=== PATIENT | female | born 1985 | race Caucasian/White ===

== ENCOUNTER 2022-02-17 04:19 | Day surgery (SDC) | payer BC, OTHER ==
[2022-02-14 12:29] VITALS: BMI 24.0
[2022-02-17] MEDS ORDERED: MIDAZOLAM HCL 2 MG/2 ML SINGLE DOSE VIAL ONE (14:09)
[2022-02-17] MEDS ORDERED: PROPOFOL 40 ML ONE (14:10)
[2022-02-17] MEDS ORDERED: SUCCINYLCHOLINE CHLORIDE 200 MG/10 ML SYRINGE ONE (14:11)
[2022-02-17] MEDS ORDERED: ROCURONIUM BROMIDE 50 MG/5 ML SYRINGE ONE (14:11)
[2022-02-17] MEDS ORDERED: ONDANSETRON 4 MG/2 ML VIAL ONE (14:12)
[2022-02-17] MEDS ORDERED: KETOROLAC TROMETHAMINE 30 MG/1 ML VIAL ONE (14:12)
[2022-02-17] MEDS ORDERED: LIDOCAINE HCL/PF 2% SDV 5ML VIAL ONE (14:12)
[2022-02-17] MEDS ORDERED: DEXAMETHASONE SOD PHOSPHATE 4 MG/1 ML VIAL ONE (14:12)
[2022-02-17] MEDS ORDERED: CEFAZOLIN SODIUM 2 GM in DEXTROSE 5%-WATER 100 ML IVPB ONE (14:22)
[2022-02-17] MEDS ORDERED: PHENYLEPHRINE HCL 10 MG/1 ML SINGLE DOSE VIAL ONE (14:45)
[2022-02-17] MEDS ORDERED: ceFAZolin SODIUM 1 GM VIAL IVPB ONE (14:50)
[2022-02-17] MEDS ORDERED: ceFAZolin SODIUM 1 GM VIAL ONE (14:56)
[2022-02-17] MEDS ORDERED: NEOSTIGMINE METHYLSULFATE 0.5 MG/1 ML - 10 ML MDV ONE (14:58)
[2022-02-17] MEDS ORDERED: GLYCOPYRROLATE 0.2 MG/1 ML VIAL ONE (14:59)
[2022-02-17] MEDS ORDERED: IBUPROFEN 800 MG/8 ML IJ IVPB PRN (16:08)
[2022-02-17] MEDS ORDERED: IBUPROFEN 600 MG TABLET (FP) PO PRN (16:08)
[2022-02-17] MEDS ORDERED: ACETAMINOPHEN 325 MG TABLET (FP) PO PRN (16:08)
[2022-02-17] MEDS ORDERED: ONDANSETRON 4 MG/2 ML VIAL IVPUSH PRN (16:14)
[2022-02-17] MEDS ORDERED: oxyCODONE HCL 5 MG TABLET PO PRN (16:14)
[2022-02-17] MEDS ORDERED: LACTATED RINGERS SOLUTION 1,000 ML IV SCH ×2 (16:15)
[2022-02-17 17:59] VITALS: RESP 16
[2022-02-17 19:27] VITALS: BP 113/72; PULSE 75; TEMP 97.9
[2022-02-18] MEDS ORDERED: oxyCODONE HCL 5 MG TABLET PO PRN ×2 (04:10)
== END 2022-02-17 18:30 | disposition home or self-care (01) ==
LOC: JASU-SURG 04:19
PROVIDERS: ATTEND Obstetrics & Gynecology
PROC: 0U574ZZ Destruction of Bilateral Fallopian Tubes, Percutaneous Endoscopic Approach (ICD-10-PCS; principal; 2022-02-17 14:00)
DX: Z30.2 Encounter for sterilization (principal)
CPT/HCPCS: 94760